=== PATIENT | male | born 1955 | race American Indian/Alaskan Native ===

== ENCOUNTER 2018-11-25 09:07 | Outpatient (CLI) | payer MEDICARE ==
--- NOTE | 2018-11-25 09:42 | XRay Report ---
LEFT SHOULDER, 3 VIEWS History: Pain in left shoulder. Findings: No comparison. There is been previous surgical pinning of the distal supraspinatus tendon, correlate with history. Mild osteoarthritic changes are identified at the glenohumeral joint. Moderate to severe degenerative changes are identified at the a.c. joint. No evidence for acute fracture or dislocation. The soft tissues are unremarkable. Impression: Osteoarthritis. Previous rotator cuff surgery.
== END 2018-11-25 09:08 | disposition home or self-care (01) ==
LOC: XRAY 09:07
PROVIDERS: ATTEND Orthopaedic Surgery
DX: M19.012 Primary osteoarthritis, left shoulder (principal); I10 Essential (primary) hypertension; E11.9 Type 2 diabetes mellitus without complications; Z87.891 Personal history of nicotine dependence

== ENCOUNTER 2018-12-30 21:45 | Observation (INO) | payer MEDICARE ==
--- NOTE | 2018-12-30 22:09 | Emergency Department Report ---
Blank Doc - Documentation Documentation: This is a 63-year-old male that presents with left sided cervical paraspinal a foster with radiation to head. Denies any trauma or injuries. This initial assessment/diagnostic orders/clinical plan/treatment(s) is/are subject to change based on patient's health status, clinical progression and re- assessment by fellow clinical providers in the ED. Further treatment and workup at subsequent clinical providers discretion. Patient/guardians urged not to elope from the ED as their condition may be serious if not clinically assessed and managed. Initial orders include: 1- Patient sent to [facility] for further evaluation and treatment
[2018-12-30] MEDS ORDERED: ATROVENT IH ONE (23:11)
[2018-12-30] MEDS ORDERED: NITROSTAT SL PRN (23:11)
[2018-12-30] MEDS ORDERED: TYLENOL PO ONE (23:11)
[2018-12-30] MEDS ORDERED: PROVENTIL IH ONE (23:11)
--- NOTE | 2018-12-30 23:14 | Emergency Department Report ---
ED General Adult HPI - General Chief complaint: Headache Stated complaint: SHOULDER NECK AND HEAD PAIN Time Seen by Provider: 12/30/18 22:08 Source: patient, RN notes reviewed, old records reviewed Mode of arrival: Ambulatory Limitations: No Limitations - History of Present Illness Initial comments: This is a 63-year-old gentleman. The patient is not known to this provider. His primary care doctor is Dr. Huynh. He has a past medical history of diabetes and hypertension. The patient presents to the emergency room with 2 complaints. History of complaints is nontraumatic acute on chronic left shoulder, left trapezius, and left paraspinal neck pain. Pain is aching and sharp, present for a few days, he has had this pain in the past, increases with palpation, range of motion, and decreases with rest. He denies DVT, pulmonary embolus risk factors. He reports a secondary complaint of chest pain. The chest pain is left-sided. It does not radiate anywhere. There is no vomiting, diaphoresis or shortness of breath. He last experienced chest pain, yesterday morning, for about 45 minutes. Questionable recent aspirin use, no recent cardiac risk stratification at the patient is aware of. -: Gradual Location: neck, chest Radiation: neck Severity scale (0 -10): 9 Quality: aching Consistency: intermittent Improves with: rest Worsens with: rest Associated Symptoms: chest pain - Related Data Home Medications Medication Instructions Recorded Confirmed Last Taken Hydrocodone/Ibuprofen [Vicoprofen 1 each PO Q4H PRN 09/15/15 09/15/15 11/13/15 07:00 7.5-200 mg TAB] Insulin Glargine [Lantus VIAL] 35 unit SUB-Q QHS 09/15/15 09/15/15 11/11/15 Lisinopril [Zestril TAB] 0 mg PO QDAY 09/15/15 09/15/15 11/13/15 07:00 Gabapentin 600 mg PO DAILY 11/13/15 11/13/15 11/12/15 Previous Rx's Medication Instructions Recorded Last Taken Type Butalb/Acetaminophen/Caffeine 1 cap PO Q6HR PRN #10 cap 09/16/15 11/12/15 Rx [Fioricet 50-300-40 mg CAP] Lisinopril/Hydrochlorothiazide 1 tab PO QDAY #30 tab 09/16/15 11/12/15 Rx [Zestoretic 20-12.5 mg] Allergies Allergy/AdvReac Type Severity Reaction Status Date / Time No Known Allergies Allergy Unverified 09/15/15 23:47 ED Review of Systems ROS: Stated complaint: SHOULDER NECK AND HEAD PAIN Other details as noted in HPI Constitutional: denies: fever, malaise Eyes: denies: vision change ENT: denies: epistaxis Respiratory: denies: cough Cardiovascular: chest pain Gastrointestinal: denies: abdominal pain, vomiting Genitourinary: denies: dysuria Musculoskeletal: back pain, arthralgia, myalgia Skin: denies: lesions Neurological: headache. denies: weakness, numbness, paresthesias, confusion ED Past Medical Hx - Past Medical History Hx Hypertension: Yes Hx Diabetes: Yes - Surgical History Past Surgical History?: Yes Additional Surgical History: left shoulder - Social History Smoking Status: Unknown if ever smoked Substance Use Type: None - Medications Home Medications: Home Medications Medication Instructions Recorded Confirmed Last Taken Type Hydrocodone/Ibuprofen [Vicoprofen 1 each PO Q4H PRN 09/15/15 09/15/15 11/13/15 07:00 History 7.5-200 mg TAB] Insulin Glargine [Lantus VIAL] 35 unit SUB-Q QHS 09/15/15 09/15/15 11/11/15 History Lisinopril [Zestril TAB] 0 mg PO QDAY 09/15/15 09/15/15 11/13/15 07:00 History Butalb/Acetaminophen/Caffeine 1 cap PO Q6HR PRN #10 cap 09/16/15 11/12/15 Rx [Fioricet 50-300-40 mg CAP] Lisinopril/Hydrochlorothiazide 1 tab PO QDAY #30 tab 09/16/15 11/12/15 Rx [Zestoretic 20-12.5 mg] Gabapentin 600 mg PO DAILY 11/13/15 11/13/15 11/12/15 History ED Physical Exam - General Limitations: No Limitations General appearance: alert, in no apparent distress - Head Head exam: Present: atraumatic, normocephalic - Eye Eye exam: Present: normal appearance, EOMI. Absent: nystagmus - ENT ENT exam: Present: normal exam, normal orophraynx, mucous membranes moist, normal external ear exam - Neck Neck exam: Present: normal inspection, tenderness, full ROM, other (there is reproducible trapezius and left-sided paracervical tenderness). Absent: meningismus - Respiratory Respiratory exam: Present: rhonchi (rhonchi noted in the left lower lobe, left hemithorax). Absent: respiratory distress - Cardiovascular Cardiovascular Exam: Present: regular rate, normal rhythm, normal heart sounds. Absent: bradycardia, tachycardia, irregular rhythm, systolic murmur, diastolic murmur, rubs, gallop - GI/Abdominal GI/Abdominal exam: Present: soft. Absent: distended, tenderness, guarding, rebound, rigid, pulsatile mass - Rectal Rectal exam: Present: deferred - Extremities Exam Extremities exam: Present: normal inspection, full ROM, other (2+ pulses noted in the bilateral upper, lower extremities. Compartments soft. No long bony tenderness. The pelvis is stable.). Absent: pedal edema, joint swelling, calf tenderness - Back Exam Back exam: Present: normal inspection, full ROM. Absent: tenderness, CVA tenderness (R), paraspinal tenderness, vertebral tenderness - Neurological Exam Neurological exam: Present: alert, oriented X3, CN II-XII intact, normal gait, other (Extraocular movements intact. Tongue midline. No facial droop. Facial sensation intact to light touch in the V1, V2, V3 distribution bilaterally. 5 and 5 strength in 4 extremities.. Sensation is intact to light touch in 4 extremities.). Absent: motor sensory deficit - Psychiatric Psychiatric exam: Present: normal affect, normal mood - Skin Skin exam: Present: warm, dry, intact, normal color. Absent: rash ED Course Vital Signs 12/30/18 12/31/18 22:08 00:52 Temperature 97.9 F Pulse Rate 93 H Respiratory 18 18 Rate Blood Pressure 127/80 O2 Sat by Pulse 100 98 Oximetry - Reevaluation(s) Reevaluation #1: 12/31/18 01:19 Differential diagnosis, including but not limited to: Paraspinal muscular neck pain, acute coronary syndrome, pulmonary embolus, pneumonia, GERD, gastritis, hiatal hernia Assessment and plan: 63-year-old gentleman with 2 complaints Complaint #1: Reproducible paracervical muscular neck pain. The patient has appropriate strength and sensation, with no sensory or motor deficits, he is apparently seen Dr. Mcdonald, our orthopedic surgeon for this in the past. This does not appear to represent an emergent medical condition, and he can be treated with pain medication. Complaint #2: Chest pain Patient has an abnormal EKG with changes from prior, nonspecific ST abnormalities on his potline monitor, and multiple cardiovascular risk factors with no recent cardiac risk stratification. Troponin negative 1, low risk by well's criteria, however d-dimer elevated, therefore nuclear medicine study of the lungs is pending. Given age, vascular risk factors, nonspecific EKG findings, I will recommend ad mission to the hospital for cardiac risk stratification, assuming nuclear medicine study is low probability. We will discuss this with the patient. Reevaluation #2: 12/31/18 01:29 Repeat EKG shows normalization of QRS complexes. Uncertain if initial EKG abnormalities were secondary to lead misplacement. There appeared EKG appears to be unchanged from prior EKG from January 2015. Still having nonspecific ST abnormalities. Patient resting comfortably, requesting additional pain medication. He is amenable to hospitalization for cardiac risk stratification. Dr Underwood accepts to the medical service 12/31/18 01:33 I will defer to the inpatient team to follow up on a nuclear medicine study. ED Medical Decision Making - Lab Data Result diagrams: 12/30/18 23:50 12/30/18 23:50 Vital Signs 12/30/18 12/31/18 22:08 00:52 Temperature 97.9 F Pulse Rate 93 H Respiratory 18 18 Rate Blood Pressure 127/80 O2 Sat by Pulse 100 98 Oximetry Lab Results 12/30/18 12/30/18 12/30/18 Range/Units 23:50 23:50 23:50 WBC 6.7 (4.5-11.0) K/mm3 RBC 6.29 H (3.65-5.03) M/mm3 Hgb 17.4 H (11.8-15.2) gm/dl Hct 50.0 H (35.5-45.6) % MCV 80 L (84-94) fl MCH 28 (28-32) pg MCHC 35 H (32-34) % RDW 13.6 (13.2-15.2) % Plt Count 273 (140-440) K/mm3 PT 12.1 L (12.2-14.9) Sec. INR 0.85 L (0.87-1.13) D-Dimer 279.48 H (0-234) ng/mlDDU Sodium 142 (137-145) mmol/L Potassium 4.1 (3.6-5.0) mmol/L Chloride 100.9 (98-107) mmol/L Carbon Dioxide 28 (22-30) mmol/L Anion Gap 17 mmol/L BUN 14 (9-20) mg/dL Creatinine 1.0 (0.8-1.5) mg/dL Estimated GFR > 60 ml/min BUN/Creatinine Ratio 14 % Glucose 293 H (75-100) mg/dL Calcium 9.3 (8.4-10.2) mg/dL Magnesium 2.10 (1.7-2.3) mg/dL Total Bilirubin 1.30 H (0.1-1.2) mg/dL AST 14 (5-40) units/L ALT 11 (7-56) units/L Alkaline Phosphatase 78 (35-129) units/L Troponin T < 0.010 (0.00-0.029) ng/mL Total Protein 6.7 (6.3-8.2) g/dL Albumin 4.3 (3.9-5) g/dL Albumin/Globulin Ratio 1.8 % - EKG Data -: EKG Interpreted by Pa EKG shows normal: sinus rhythm Rate: normal - EKG Data 12/31/18 01:32 EKG #1 shows sinus, 91 bpm, left axis deviation, QTC prolonged, left anterior fascicular block, left ventricular hypertrophy, nonspecific ST abnormality, not consistent with ST elevation myocardial infarction. EKG #2 shows sinus tachycardia, 103 bpm, normal axis, QTC 458 ms, left ventricular hypertrophy, nonspecific ST elevation. Abnormal EKG. Not consistent with ST elevation myocardial infarction. - Radiology Data Radiology results: report reviewed, image reviewed Critical care attestation.: If time is entered above; I have spent that time in minutes in the direct care of this critically ill patient, excluding procedure time. ED Disposition Clinical Impression: Neck pain, Chest pain, Abnormal EKG Disposition: OP ADMIT IP TO THIS HOSP Is pt being admited?: Yes Does the pt Need Aspirin: Yes Condition: Good Instructions: Chest Pain (ED) Referrals: PRIMARY CARE, [Primary Care Provider] - 3-5 Days
[2018-12-31 00:19] LABS: Hemoglobin 17.4 gm/dl (11.8-15.2); Mean Corpuscular HGB Conc 35 % (32-34); Mean Corpuscular Volume 80 fl (84-94); Platelet Count 273 K/mm3 (140-440); Red Blood Count 6.29 M/mm3 (3.65-5.03); Red Cell Distribution Width 13.6 % (13.2-15.2)
[2018-12-31 00:28] LABS: INR 0.85 (0.87-1.13)
[2018-12-31 00:38] LABS: Alanine Aminotransferase 11 units/L (7-56); Albumin 4.3 g/dL (3.9-5); BUN/Creatinine Ratio 14; Blood Urea Nitrogen 14 mg/dL (9-20); Calcium 9.3 mg/dL (8.4-10.2); Hemolysis Index 9
--- NOTE | 2018-12-31 01:07 | XRay Report ---
PROCEDURE: XR CHEST ROUTINE 2V TECHNIQUE: PA and lateral chest radiographs were obtained. HISTORY: cp COMPARISONS: August 03, 2012. FINDINGS: Heart: Normal. Mediastinum/Vessels: Normal. Lungs/Pleural space: Lungs are expanded. There are no infiltrates, effusions or pneumothoraces.. Bony thorax: No acute osseous abnormality. IMPRESSION: Normal examination. This document is electronically signed by Saul Lomeli MD., December 31 2018 01:05:43 AM ET
[2018-12-31] MEDS ORDERED: TORADOL IV ONE (01:19)
[2018-12-31] MEDS ORDERED: SUBLIMAZE IV ONE (01:29)
[2018-12-31] MEDS ORDERED: BABY ASPIRIN PO ONE (01:33)
[2018-12-31] MEDS ORDERED: MORPHINE IV PRN (02:03)
[2018-12-31] MEDS ORDERED: ZOFRAN IV PRN (02:04)
[2018-12-31] MEDS ORDERED: TYLENOL PO PRN (02:05)
[2018-12-31] MEDS ORDERED: D50W (25GM) Syringe IV PRN (02:08)
[2018-12-31] MEDS ORDERED: HABITROL TD ONE (02:12)
[2018-12-31] MEDS ORDERED: HEPARIN SUB-Q SCH (02:15)
[2018-12-31] MEDS: HumuLIN R SUB-Q SCH ×3 (02:59→10:00)
[2018-12-31] MEDS ORDERED: HEPARIN ONE (03:30)
--- NOTE | 2018-12-31 03:32 | History and Physical Report ---
CHIEF COMPLAINT: Chest pain. Other complaint includes neck and shoulder pain. HISTORY OF PRESENT ILLNESS: The patient is a 63-year-old male, who said he has been having pressure-like chest pain involving the precordial area and going on for some days. Pain is pressure in nature, does not radiate and is not associated by shortness of breath, nausea or vomiting. There is also no history of diaphoresis. Pain is intermittent in nature and there is also history of chronic left shoulder and left side of the neck pain, which flared up in the last 2 days. PAST MEDICAL HISTORY: Pertinent for hypertension, diabetes mellitus. PAST SURGICAL HISTORY: Pertinent for left shoulder surgery. FAMILY HISTORY: Noncontributory. SOCIAL HISTORY: The patient does not smoke, does not drink alcohol and does not use illicit drugs. MEDICATIONS: The patient is on Vicoprofen 7.5/200 mg 1 by mouth every 4 hours as needed for pain, Lantus insulin 35 units subcutaneous every night, lisinopril, dose and frequency unknown, Fioricet 50/300/40 mg 1 by mouth every 6 hours as needed for pain, Zestoretic 20/12.5 mg 1 by mouth daily, gabapentin 600 mg by mouth daily. ALLERGIES: There are no known drug allergies. REVIEW OF SYSTEMS: CONSTITUTIONAL: There is no fever, no chills, no diaphoresis. HEENT: There is no headache or sore throat. CARDIOVASCULAR SYSTEM: Chest pain is present. No orthopnea. RESPIRATORY SYSTEM: There is no shortness of breath or cough. GASTROINTESTINAL SYSTEM: There is no nausea, no vomiting, no abdominal pain, diarrhea or constipation. NEUROLOGICAL: There is no numbness, no dizziness, no altered mental status. MUSCULOSKELETAL SYSTEM: Pain in the left shoulder area and left side of the neck noted. No joint swelling. DERMATOLOGICAL SYSTEM: There is no skin rash or itching. GENITOURINARY SYSTEM: There is no dysuria, hematuria, or flank pain. Rest of system review is normal. PHYSICAL EXAMINATION: GENERAL: At the time of exam, the patient was found to be alert, oriented x 3 and not in acute distress. VITAL SIGNS: Shows temperature of 97.9 degrees Fahrenheit, pulse of 93, respirations 18, blood pressure 127/80, O2 sat of 100% on room air. HEENT: Showed pupils to be equal, round, reactive to light and accommodating. Extraocular muscles are intact. NECK: Supple with no JVD or carotid bruits. CARDIOVASCULAR: Showed normal first and second heart sounds with no gallops or murmur. RESPIRATORY SYSTEM: Show good air entry on both sides of the lungs with no abnormal breath sounds. GASTROINTESTINAL SYSTEM: Show abdomen to be full, soft, nontender with no organomegaly or rigidity. NEUROLOGICAL: Shows no focal deficit. MUSCULOSKELETAL SYSTEM: Show no joint swelling or tenderness. DERMATOLOGICAL SYSTEM: Show no skin rash. GENITOURINARY SYSTEM: Showing no costovertebral angle tenderness. PERTINENT LABORATORY DATA AND IMAGING STUDIES: The patient has chest x-ray done that came back unremarkable and the patient's lab results shows CBC with normal white count, elevated hemoglobin of 17.4 and elevated hematocrit of 50 with normal platelet count and coagulation studies show elevated D-dimer of 279.4. The patient's chemistry show high blood glucose level of 293 with slightly elevated bilirubin level of 1.3. The patient's cardiac enzymes show normal troponin level. The patient also has a CT angiogram of the chest or V/Q scan pending. DIAGNOSES: 1. Chest pain. 2. Neck pain. PLAN OF CARE: 1. The patient will be admitted to the telemetry. 2. The patient will have cardiac enzyme involving troponin, total CK and CK-MB checked q. 6 hours x 2 more levels. 3. The patient will be n.p.o. for Lexiscan stress test in the morning to rule out coronary artery disease. 4. The patient will be n.p.o. until Lexiscan stress test is done this morning. 5. The patient will be on aspirin 325 mg by mouth daily and will be on IV morphine 2 mg every 3 hours as needed for pain. 6. The patient will be on IV Zofran 4 mg every 8 hours for nausea and vomiting. 7. The patient will be on nitro paste half inch to anterior chest wall q.i.d. as well as Nitrostat 0.4 mg sublingual every 5 minutes as needed for breakthrough chest pain. 8. The patient will be on Tylenol 650 mg by mouth every 4 hours as needed for fever and headache and will be on heparin 5000 units subcutaneous q. 12 hours for DVT prophylaxis. 9. The patient will be on nicotine patch 14 mg transdermally daily and will be on oxygen by nasal cannula at 2 liter per minute. 10. The patient will be on Accu-Chek every 4 hours followed by low-dose sliding scale using regular insulin coverage. JOB# [id number] OCN/NTS
[2018-12-31] MEDS ORDERED: ASPIRIN ONE (04:09)
[2018-12-31] MEDS ORDERED: APRESOLINE IV ONE (05:07)
[2018-12-31] MEDS: NITRO-BID 2% TP SCH ×2 (05:24→12:00)
[2018-12-31 08:08] LABS: Creatine Kinase MB 1.6 ng/mL (0.0-4.0)
[2018-12-31] MEDS ORDERED: LEXISCAN IV ONE ×2 (09:00→09:03)
[2018-12-31] MEDS ORDERED: XANAX PO STA (09:24)
--- NOTE | 2018-12-31 11:16 | Discharge Summary ---
Providers - Providers Date of Admission: 12/31/18 01:33 Date of discharge: 12/31/18 Attending physician: ANCELMO PRESSLEY Primary care physician: [employer] Hospitalization Reason for admission: cp Condition: Good Hospital course: This is a 63-year-old male with past medical history of hypertension and diabetes mellitus type 2 who presented through the emergency room department with chief complaint of chest pain. Patient reported the pain on the left anterior chest nonradiating. Patient also reported left shoulder and neck pain. Patient denied any trauma, shortness of breath, diaphoresis nausea or vomiting. Patient was admitted with diagnosis of chest pain. Cardiac isoenzymes were found to be negative and EKG within normal limits. Patient underwent stress thallium and if found to be negative likely will discharge home. The patient's chest pain was noted to be reproducible with palpation. Etiology of chest pain is likely musculoskeletal/costochondritis. Dedicated discharge time 32 minutes. Disposition: TO HOME OR SELFCARE Time spent for discharge: 31 - Discharge Diagnoses (1) Chest pain Status: Acute (2) Neck pain Status: Acute Core Measure Documentation - Palliative Care Palliative Care/ Comfort Measures: Not Applicable - Core Measures Any of the following diagnoses?: none Exam - Constitutional Vitals: Temp Pulse Resp BP Pulse Ox 98.2 F 84 16 195/94 94 12/31/18 05:00 12/31/18 05:00 12/31/18 05:00 12/31/18 04:35 12/31/18 05:00 General appearance: Present: no acute distress, well-nourished - EENT Eyes: Present: PERRL ENT: hearing intact, clear oral mucosa - Neck Neck: Present: supple, normal ROM - Respiratory Respiratory effort: normal Respiratory: bilateral: CTA - Cardiovascular Heart Sounds: Present: S1 & S2. Absent: rub, click - Extremities Extremities: pulses symmetrical, No edema Peripheral Pulses: within normal limits - Abdominal General gastrointestinal: Present: soft, non-tender, non-distended, normal bowel sounds Male genitourinary: Present: normal - Integumentary Integumentary: Present: clear, warm, dry - Musculoskeletal Musculoskeletal: gait normal, strength equal bilaterally - Psychiatric Psychiatric: appropriate mood/affect, intact judgment & insight - Neurologic Neurologic: CNII-XII intact, moves all extremities Plan Activity: no restrictions Weight Bearing Status: Full Weight Bearing Diet: diabetic Follow up with: PRIMARY CARE, [Primary Care Provider] - 3-5 Days Prescriptions: Aspirin [Aspirin TAB] 325 mg PO QDAY #30 tablet Gabapentin 600 mg PO DAILY #30 Insulin Glargine [Lantus VIAL] 35 unit SUB-Q QHS 30 Days units Gabapentin [Neurontin] 600 mg PO QDAY #30 capsule Lisinopril/Hydrochlorothiazide [Zestoretic 20-12.5 mg] 1 tab PO QDAY #30 tab Lisinopril [Zestril TAB] 5 mg PO QDAY #30 tablet
[2018-12-31 12:04] VITALS: BP 151/87
[2018-12-31 13:40] LABS: Creatine Kinase MB 1.8 ng/mL (0.0-4.0)
--- NOTE | 2018-12-31 21:00 | Treadmill Report ---
MYOCARDIAL PERFUSION IMAGING STUDY The patient is in 462. Resting images with a radioisotope tetrofosmin revealed slightly diminished uptake in the inferior wall. On post-Lexiscan, again similar uptake is noted. This is probably due to artifact as post-Lexiscan scan reveals better uptake than the resting scan. On gated scan, ejection fraction is noted to be 43%. No segmental motion abnormality noted. IMPRESSION: This test is negative for ischemia. JOB# [id number] ARNEL/SKYLA
[2018-12-31] MEDS ORDERED: LANTUS SUB-Q SCH (22:00)
[2019-01-01] MEDS ORDERED: NON-FORMULARY (Gabapentin 600 MG) PO SCH (10:00)
[2019-01-01] MEDS ORDERED: NEURONTIN PO SCH (10:00)
[2019-01-01] MEDS ORDERED: ZESTRIL PO SCH ×2 (10:00)
[2019-01-01] MEDS ORDERED: ASPIRIN PO SCH (10:00)
[2019-01-01] MEDS ORDERED: HCTZ PO SCH (10:00)
[2019-01-01] MEDS ORDERED: NON-FORMULARY (Lisinopril/Hydrochlorothiazide [Zestoretic 20-12.5 Mg] 1 TAB) PO SCH (10:00)
== END 2018-12-31 13:29 | disposition home or self-care (01) ==
LOC: ED 21:45 → 4A 12-31 01:33
PROVIDERS: ADMIT Internal Medicine; ATTEND Hospitalist
DX: R07.89 Other chest pain (principal); M54.2 Cervicalgia; I10 Essential (primary) hypertension; E11.9 Type 2 diabetes mellitus without complications; Z79.899 Other long term (current) drug therapy
CPT/HCPCS: 36415; 71046; 78452; 80053; 82550; 82553; 82962; 83735; 84484; 85027; 85379; 85610; 93005; 93010; 93017; 96372; 96374; 96375; 99284; A9502; G0378; J0360; J1644; J1885; J2270; J2785; J3010

== ENCOUNTER 2019-02-04 05:56 | Outpatient (CLI) | payer MEDICARE ==
[2019-02-04 07:03] LABS: Blood Urea Nitrogen 16 mg/dL (9-20)
--- NOTE | 2019-02-04 10:46 | Cat Scan Report ---
CT ABDOMEN AND PELVIS WITHOUT CONTRAST: 02/04/19 05:56:00 CLINICAL:Abdominal pain. TECHNIQUE: Volumetric acquisition and 1.25 millimeter scan reconstructions from the lung bases through the pelvis. The study was performed without oral contrast. FINDINGS: Abdomen:Clear lung bases. Normal liver size, contour and density. No liver mass. A few tiny calculi layer dependently in the gallbladder. The gall bladder is nondistended with normal wall. No pericholecystic fluid. Normal distal esophagus, stomach, and duodenum. Granulomatous calcifications in an otherwise normal spleen. The adrenal glands are normal. Mild atherosclerotic calcification of the distal aorta. It measures 2.2 cm maximum diameter. The right kidney measures 10.8 cm in length and the left kidney measures 10.0 cm in length. The renal collecting systems and ureters are nondilated. Two 3 millimeter nonobstructive left lower pole renal calculi. A probable calcification in the midportion of the right kidney but no right urinary calculus. No renal mass or cyst. No ascites and no pneumoperitoneum. Normal small bowel. A few diverticula the right colon and more numerous diverticula of the distal transverse and descending colon. No signs of diverticulitis. The appendix is normal. No mass or lymphadenopathy. Pelvis: Normal urinary bladder, prostate and rectum. Mild sigmoid diverticulosis with no diverticulitis. Calcification of seminal vesicles. No inguinal hernia. Bone windows demonstrate no suspicious bone lesion. Degenerative change in the lumbar spine and hips. IMPRESSION: 1. Cholelithiasis but no signs of acute cholecystitis. 2. No evidence of choledocholithiasis or pancreatitis. 3. Nonobstructive subcentimeter left lower pole renal calculi. 4. Diverticulosis but no diverticulitis.
== END 2019-02-04 05:57 | disposition home or self-care (01) ==
LOC: CT 05:56
PROVIDERS: ATTEND Internal Medicine Gastroenterology
DX: K80.20 Calculus of gallbladder without cholecystitis without obstruction (principal); K57.30 Diverticulosis of large intestine without perforation or abscess without bleeding; I10 Essential (primary) hypertension; E11.9 Type 2 diabetes mellitus without complications; Z87.891 Personal history of nicotine dependence
CPT/HCPCS: 36415; 74176; 82565; 84520

== ENCOUNTER 2019-04-18 10:54 | Emergency (ER) | payer MEDICARE ==
[2019-04-18 11:07] VITALS: BP 159/99
--- NOTE | 2019-04-18 11:08 | Event Note ---
ED Screening Note ED Screening Note: c/o chest pain c/o cough hx HTN, DM smoker This initial assessment/diagnostic orders/clinical plan/treatment(s) is/are subject to change based on patients health status, clinical progression and re- assessment by fellow clinical providers in the ED. Further treatment and workup at subsequent clinical providers discretion. Patient/guardian urged not to elope from the ED as their condition may be serious if not clinically assessed and managed. Initial orders include: Cp protocol
[2019-04-18] MEDS ORDERED: ATROVENT IH ONE (11:31)
[2019-04-18] MEDS ORDERED: PROVENTIL IH ONE (11:31)
[2019-04-18 12:18] LABS: Basophils # (Auto) 0.1 K/mm3 (0.0-0.1); Basophils % (Auto) 0.6 % (0.0-1.8); Eosinophils # (Auto) 0.2 K/mm3 (0.0-0.4); Eosinophils % (Auto) 1.8 % (0.0-4.3); Lymphocytes # (Auto) 2.6 K/mm3 (1.2-5.4); Lymphocytes % (Auto) 28.7 % (13.4-35.0); Mean Corpuscular HGB Conc 36 % (32-34); Mean Corpuscular Volume 80 fl (84-94); Monocytes # (Auto) 0.6 K/mm3 (0.0-0.8); Monocytes % (Auto) 6.5 % (0.0-7.3); Platelet Count 299 K/mm3 (140-440); Red Blood Count 6.01 M/mm3 (3.65-5.03)
[2019-04-18 12:23] LABS: BUN/Creatinine Ratio 12; Blood Urea Nitrogen 14 mg/dL (9-20); Calcium 8.8 mg/dL (8.4-10.2); Hemolysis Index 6
[2019-04-18 12:26] LABS: Hematocrit 47.9 % (35.5-45.6); Hemoglobin 17.1 gm/dl (11.8-15.2)
--- NOTE | 2019-04-18 12:56 | XRay Report ---
PROCEDURE: XR CHEST ROUTINE 2V TECHNIQUE: PA and lateral chest radiographs were obtained. HISTORY: Chest Pain COMPARISONS: None. FINDINGS: Frontal and lateral views of the chest were acquired and compared to the prior examination of December 30, 2018. The heart is normal in size. The lungs are hyperinflated similar to the prior exam. There is no pneum othorax. There is no consolidative pulmonary infiltrate. IMPRESSION: Stable hyperinflation No consolidative infiltrate This document is electronically signed by Pranav Lara MD., April 18 2019 12:54:04 PM ET
--- NOTE | 2019-04-18 13:19 | Emergency Department Report ---
- General Chief Complaint: Upper Respiratory Infection Stated Complaint: CHEST PAIN Time Seen by Provider: 04/18/19 11:06 Source: patient Mode of arrival: Ambulatory Limitations: No Limitations - History of Present Illness Initial Comments: Patient is a 63-year-old [place] male presenting with a cough for the past 5 days. Cough is productive of thick yellow sputum. Patient has some chest tightness as well has been present last several days. Patient has a history of hypertension diabetes. Patient states he has had chills and possible fever does not take an objective temperature. She denies any nausea vomiting diarrhea sore throat or neck stiffness. - Related Data Home Medications Medication Instructions Recorded Confirmed Last Taken Hydrocodone/Ibuprofen [Vicoprofen 1 each PO Q4H PRN 09/15/15 09/15/15 11/13/15 07:00 7.5-200 mg TAB] Previous Rx's Medication Instructions Recorded Last Taken Type Butalb/Acetaminophen/Caffeine 1 cap PO Q6HR PRN #10 cap 09/16/15 11/12/15 Rx [Fioricet 50-300-40 mg CAP] Aspirin 325 mg PO QDAY #30 tablet 12/31/18 Unknown Rx Gabapentin 600 mg PO DAILY #30 12/31/18 Unknown Rx Gabapentin [Neurontin] 600 mg PO QDAY #30 capsule 12/31/18 Unknown Rx Insulin Glargine [Lantus VIAL] 35 unit SUB-Q QHS 30 Days units 12/31/18 Unknown Rx Lisinopril [Zestril TAB] 5 mg PO QDAY #30 tablet 12/31/18 Unknown Rx Lisinopril/Hydrochlorothiazide 1 tab PO QDAY #30 tab 12/31/18 Unknown Rx [Zestoretic 20-12.5 mg] oxyCODONE /ACETAMINOPHEN [Percocet 1 tab PO Q4HR #12 tab 12/31/18 Unknown Rx 5/325] ALBUTEROL Inhaler (OR & NICU) 2 puff IH QID PRN #1 inhalation 04/18/19 Unknown Rx [ProAir HFA Inhaler] Amoxicillin/Potassium Clav 1 each PO BID #14 tablet 04/18/19 Unknown Rx [Augmentin 875-125 Tablet] Benzonatate [Tessalon Perles] 100 mg PO Q8HR #10 capsule 04/18/19 Unknown Rx traMADol [Ultram] 50 mg PO Q6HR PRN #12 tablet 04/18/19 Unknown Rx Allergies Allergy/AdvReac Type Severity Reaction Status Date / Time No Known Allergies Allergy Unverified 09/15/15 23:47 ED Review of Systems ROS: Stated complaint: CHEST PAIN Other details as noted in HPI Comment: All other systems reviewed and negative ED Past Medical Hx - Past Medical History Hx Hypertension: Yes Hx Diabetes: Yes - Surgical History Additional Surgical History: left shoulder - Social History Smoking Status: Current Every Day Smoker Substance Use Type: Alcohol - Medications Home Medications: Home Medications Medication Instructions Recorded Confirmed Last Taken Type Hydrocodone/Ibuprofen [Vicoprofen 1 each PO Q4H PRN 09/15/15 09/15/15 11/13/15 07:00 History 7.5-200 mg TAB] Butalb/Acetaminophen/Caffeine 1 cap PO Q6HR PRN #10 cap 09/16/15 11/12/15 Rx [Fioricet 50-300-40 mg CAP] Aspirin 325 mg PO QDAY #30 tablet 12/31/18 Unknown Rx Gabapentin 600 mg PO DAILY #30 12/31/18 Unknown Rx Gabapentin [Neurontin] 600 mg PO QDAY #30 capsule 12/31/18 Unknown Rx Insulin Glargine [Lantus VIAL] 35 unit SUB-Q QHS 30 Days units 12/31/18 Unknown Rx Lisinopril [Zestril TAB] 5 mg PO QDAY #30 tablet 12/31/18 Unknown Rx Lisinopril/Hydrochlorothiazide 1 tab PO QDAY #30 tab 12/31/18 Unknown Rx [Zestoretic 20-12.5 mg] oxyCODONE /ACETAMINOPHEN [Percocet 1 tab PO Q4HR #12 tab 12/31/18 Unknown Rx 5/325] ALBUTEROL Inhaler (OR & NICU) 2 puff IH QID PRN #1 inhalation 04/18/19 Unknown Rx [ProAir HFA Inhaler] Amoxicillin/Potassium Clav 1 each PO BID #14 tablet 04/18/19 Unknown Rx [Augmentin 875-125 Tablet] Benzonatate [Tessalon Perles] 100 mg PO Q8HR #10 capsule 04/18/19 Unknown Rx traMADol [Ultram] 50 mg PO Q6HR PRN #12 tablet 04/18/19 Unknown Rx ED Physical Exam - General Limitations: No Limitations General appearance: alert, in no apparent distress - Head Head exam: Present: atraumatic, normocephalic - Eye Eye exam: Present: normal appearance. Absent: PERRL, EOMI - ENT ENT exam: Present: mucous membranes moist - Neck Neck exam: Present: normal inspection - Respiratory Respiratory exam: Present: respiratory distress, wheezes. Absent: normal lung sounds bilaterally, rales, rhonchi - Cardiovascular Cardiovascular Exam: Present: regular rate, normal rhythm. Absent: systolic murmur, diastolic murmur, rubs, gallop - GI/Abdominal GI/Abdominal exam: Present: soft, normal bowel sounds. Absent: distended, tenderness, guarding, rebound - Rectal Rectal exam: Present: deferred - Extremities Exam Extremities exam: Present: normal inspection - Back Exam Back exam: Present: normal inspection - Neurological Exam Neurological exam: Present: alert, oriented X3 - Psychiatric Psychiatric exam: Present: normal affect, normal mood - Skin Skin exam: Present: warm, dry, intact, normal color. Absent: rash ED Course Vital Signs 04/18/19 04/18/19 04/18/19 11:02 11:53 12:23 Temperature 97.8 F Pulse Rate 97 H Pulse Rate [ 88 92 H Anterior Bilateral Throughout] Respiratory 19 Rate Respiratory 20 20 Rate [Anterior Bilateral Throughout] Blood Pressure 159/99 O2 Sat by Pulse 95 Oximetry ED Medical Decision Making - Lab Data Result diagrams: 04/18/19 11:56 04/18/19 11:56 - EKG Data -: EKG Interpreted by [facility] EKG shows normal: sinus rhythm, axis, intervals, QRS complexes, ST-T waves Rate: normal - EKG Data Interpretation: [facility] - Radiology Data [facility] [address] [place] [address] XRay Report Signed Patient: RICCI COFFEY MR#: [id number] : 1955 Acct:[id number] Age/Sex: 63 / M ADM Date: 04/18/19 Loc: ED Attending Dr: Ordering Physician: NIURKA REGALADO Date of Service: 04/18/19 Procedure(s): XR chest routine 2V Accession Number(s): [id number] cc: NIURKA REGALADO Fluoro Time In Minutes: PROCEDURE: XR CHEST ROUTINE 2V TECHNIQUE: PA and lateral chest radiographs were obtained. HISTORY: Chest Pain COMPARISONS: None. FINDINGS: Frontal and lateral views of the chest were acquired and compared to the prior examination of December 30, 2018. The heart is normal in size. The lungs are hyperinflated similar to the prior exam. There is no pneumothorax. There is no consolidative pulmonary infiltrate. IMPRESSION: Stable hyperinflation No consolidative infiltrate This document is electronically signed by Pranav Lara MD., April 18 2019 12:54:04 PM ET Transcribed By: SREEKANTH Dictated By: PRANAV LARA MD Electronically Authenticated By: PRANAV LARA MD Signed Date/Time: 04/18/19 1256 DD/ 1144 - Medical Decision Making Patient is a 63-year-old [place] male presenting with a productive cough and wheezing. Patient was given neb treatment over a course of a half hour and feeling much improved. Wheezing has resolved at the time of discharge. Patient chest x-ray shows no evidence of pneumonia patient does have acute bronchitis. Because the patient's age and the fact that he smokes patient will be started on antibiotics. Patient also given an albuterol inhaler as well as medications for pain relief Critical care attestation.: If time is entered above; I have spent that time in minutes in the direct care of this critically ill patient, excluding procedure time. ED Disposition Clinical Impression: Acute respiratory distress, Bronchospasm Acute bronchitis Qualifiers: Bronchitis organism: other organism Qualified Code(s): J20.8 - Acute bronchitis due to other specified organisms Chest pain Qualifiers: Chest pain type: intercostal pain Qualified Code(s): R07.82 - Intercostal pain Disposition: - TO HOME OR SELFCARE Is pt being admited?: No Does the pt Need Aspirin: No Condition: Stable Instructions: Acute Bronchitis (ED), Chest Pain (ED) Time of Disposition: 13:21
== END 2019-04-18 13:30 | disposition home or self-care (01) ==
LOC: ED 10:54
DX: J20.9 Acute bronchitis, unspecified (principal); R06.03 Acute respiratory distress; I10 Essential (primary) hypertension; E11.9 Type 2 diabetes mellitus without complications; F17.200 Nicotine dependence, unspecified, uncomplicated; Z79.82 Long term (current) use of aspirin; Z79.4 Long term (current) use of insulin; Z79.899 Other long term (current) drug therapy
CPT/HCPCS: 36415; 71046; 80048; 85025; 93005; 93010; 94640; 99284

== ENCOUNTER 2022-07-14 19:54 | Inpatient (IN) | payer MEDICARE, OTHER ==
[2022-07-14 21:42] LABS: Basophils # (Auto) 0.1 K/mm3 (0.0-0.1); Eosinophils % (Auto) 0.4 % (0.0-4.3); Monocytes # (Auto) 0.9 K/mm3 (0.0-0.8); Monocytes % (Auto) 8.2 % (0.0-7.3)
[2022-07-14 21:47] LABS: Basophils % (Auto) 0.7 % (0.0-1.8); Hematocrit 59.8 % (35.5-45.6); Hemoglobin 19.8 gm/dl (11.8-15.2); Lymphocytes # (Auto) 1.8 K/mm3 (1.2-5.4); Lymphocytes % (Auto) 15.1 % (13.4-35.0); Mean Corpuscular HGB Conc 33 % (32-34); Mean Corpuscular Volume 75 fl (84-94); Platelet Count 257 K/mm3 (140-440); Red Blood Count 7.92 M/mm3 (3.65-5.03); Red Cell Distribution Width 15.6 % (13.2-15.2)
[2022-07-14 21:52] LABS: INR 1.05 (0.87-1.13)
--- NOTE | 2022-07-14 21:54 | XRay Report ---
CHEST 2 VIEWS INDICATION / CLINICAL INFORMATION: CHEST PAIN / COUGH. COMPARISON: December 2019 FINDINGS: SUPPORT DEVICES: None. HEART / MEDIASTINUM: No significant abnormality. LUNGS / PLEURA: Patchy airspace opacities right upper lobe. No pneumothorax. Peribronchial thickening . ADDITIONAL FINDINGS: No significant additional findings. IMPRESSION: 1. Patchy right upper lobe consolidation most concerning for pneumonia in the appropriate clinical se tting, other mimicking etiologies secondarily considered, superimposed upon bronchitic change. Contin ued clinical/imaging surveillance to clearance recommended. Signer Name: Kimi Day MD Signed: 07/14/2022 9:50 PM Workstation Name: [id number]
--- NOTE | 2022-07-14 21:59 | Emergency Department Report ---
ED General Adult HPI - General Chief complaint: Chest Pain Stated complaint: CHEST PAIN/DIFFICUTLY BREATHING PUI?: No Time Seen by Provider: 07/14/22 21:31 Source: patient, family Mode of arrival: Wheelchair Limitations: No Limitations - History of Present Illness Initial comments: This is a 65-year-old male with medical history of diabetes hypertension came in today with concerns of chest pain that started yesterday. According patient is a aching chest discomfort with also short of breath. Patient also endorsed abdominal discomfort that is more in the mid epigastric rating to her back and also suprapubic lesion. She denies any chest pain makes it better or make it worse. Patient denies chest pain radiate anywhere else. Patient denies any other associate symptoms. Patient denies fever chill night sweat dizziness blurred vision lightheadedness headache tinnitus ear pain runny nose sore throat loss of taste or smell palpitation cough diarrhea constipation dysuria myalgia arthralgia new rash and heat or cold intolerance. - Related Data Home Medications Medication Instructions Recorded Confirmed Last Taken Hydrocodone/Ibuprofen [Vicoprofen 1 each PO Q4H PRN 09/15/15 09/15/15 11/13/15 07:00 7.5-200 mg TAB] Previous Rx's Medication Instructions Recorded Last Taken Type Butalb/Acetaminophen/Caffeine 1 cap PO Q6HR PRN #10 cap 09/16/15 11/12/15 Rx [Fioricet 50-300-40 mg CAP] Aspirin 325 mg PO QDAY #30 tablet 12/31/18 Unknown Rx Gabapentin 600 mg PO DAILY #30 12/31/18 Unknown Rx Gabapentin 600 mg PO QDAY #30 capsule 12/31/18 Unknown Rx Insulin Glargine [Lantus VIAL] 35 unit SUB-Q QHS 30 Days units 12/31/18 Unknown Rx Lisinopril/Hydrochlorothiazide 1 tab PO QDAY #30 tab 12/31/18 Unknown Rx [Zestoretic 20-12.5 mg] lisinopriL [Zestril TAB] 5 mg PO QDAY #30 tablet 12/31/18 Unknown Rx oxyCODONE /ACETAMINOPHEN [Percocet 1 tab PO Q4HR #12 tab 12/31/18 Unknown Rx 5/325] Albuterol Mdi (or & Nicu Only) 2 puff IH QID PRN #1 inhalation 04/18/19 Unknown Rx [ProAir HFA Inhaler] Amoxicillin/Potassium Clav 1 each PO BID #14 tablet 04/18/19 Unknown Rx [Augmentin 875-125 Tablet] Benzonatate [Tessalon Perles] 100 mg PO Q8HR #10 capsule 04/18/19 Unknown Rx traMADoL [Ultram] 50 mg PO Q6HR PRN #12 tablet 04/18/19 Unknown Rx Cyclobenzaprine [Flexeril] 10 mg PO QHS PRN #10 tablet 01/13/20 Unknown Rx Naproxen 500 mg PO Q12H PRN #20 tablet 01/13/20 Unknown Rx Allergies Allergy/AdvReac Type Severity Reaction Status Date / Time No Known Allergies Allergy Unverified 09/15/15 23:47 ED Review of Systems ROS: Stated complaint: CHEST PAIN/DIFFICUTLY BREATHING Other details as noted in HPI Comment: All other systems reviewed and negative Constitutional: no symptoms reported Eyes: as per HPI ENT: as per HPI Respiratory: no symptoms reported, see HPI Cardiovascular: as per HPI Endocrine: no symptoms reported, see HPI Gastrointestinal: abdominal pain, nausea, vomiting. denies: diarrhea, constipation, hematemesis, melena, hematochezia Musculoskeletal: as per HPI Skin: as per HPI Neurological: as per HPI Psychiatric: as per HPI Hematological/Lymphatic: as per HPI ED Past Medical Hx - Past Medical History Previous Medical History?: Yes Hx Hypertension: Yes Hx Diabetes: Yes - Surgical History Past Surgical History?: No Additional Surgical History: left shoulder - Social History Smoking Status: Unknown if ever smoked - Medications Home Medications: Home Medications Medication Instructions Recorded Confirmed Last Taken Type Hydrocodone/Ibuprofen [Vicoprofen 1 each PO Q4H PRN 09/15/15 09/15/15 11/13/15 07:00 History 7.5-200 mg TAB] Butalb/Acetaminophen/Caffeine 1 cap PO Q6HR PRN #10 cap 09/16/15 11/12/15 Rx [Fioricet 50-300-40 mg CAP] Aspirin 325 mg PO QDAY #30 tablet 12/31/18 Unknown Rx Gabapentin 600 mg PO DAILY #30 12/31/18 Unknown Rx Gabapentin 600 mg PO QDAY #30 capsule 12/31/18 Unknown Rx Insulin Glargine [Lantus VIAL] 35 unit SUB-Q QHS 30 Days units 12/31/18 Unkn own Rx Lisinopril/Hydrochlorothiazide 1 tab PO QDAY #30 tab 12/31/18 Unknown Rx [Zestoretic 20-12.5 mg] lisinopriL [Zestril TAB] 5 mg PO QDAY #30 tablet 12/31/18 Unknown Rx oxyCODONE /ACETAMINOPHEN [Percocet 1 tab PO Q4HR #12 tab 12/31/18 Unknown Rx 5/325] Albuterol Mdi (or & Nicu Only) 2 puff IH QID PRN #1 inhalation 04/18/19 Unknown Rx [ProAir HFA Inhaler] Amoxicillin/Potassium Clav 1 each PO BID #14 tablet 04/18/19 Unknown Rx [Augmentin 875-125 Tablet] Benzonatate [Tessalon Perles] 100 mg PO Q8HR #10 capsule 04/18/19 Unknown Rx traMADoL [Ultram] 50 mg PO Q6HR PRN #12 tablet 04/18/19 Unknown Rx Cyclobenzaprine [Flexeril] 10 mg PO QHS PRN #10 tablet 01/13/20 Unknown Rx Naproxen 500 mg PO Q12H PRN #20 tablet 01/13/20 Unknown Rx ED Physical Exam - General Limitations: No Limitations ED Course Vital Signs 07/14/22 07/14/22 07/14/22 20:00 21:10 21:42 Temperature 98.9 F Pulse Rate 107 H 90 92 H Respiratory 18 20 18 Rate Blood Pressure 145/88 Blood Pressure 151/79 [Left] O2 Sat by Pulse 91 97 Oximetry 07/14/22 07/14/22 07/14/22 21:45 22:01 22:15 Temperature Pulse Rate 93 H 94 H 93 H Respiratory 16 29 H 26 H Rate Blood Pressure 168/133 146/96 146/82 Blood Pressure [Left] O2 Sat by Pulse 100 98 98 Oximetry 07/14/22 07/14/22 07/14/22 22:31 22:45 23:01 Temperature Pulse Rate 94 H 89 97 H Respiratory 40 H 29 H 20 Rate Blood Pressure 151/80 148/78 159/83 Blood Pressure [Left] O2 Sat by Pulse 98 98 97 Oximetry 07/14/22 07/14/22 07/14/22 23:04 23:07 23:09 Temperature 98.4 F Pulse Rate 91 H 97 H Respiratory 25 H 20 20 Rate Blood Pressure 144/117 Blood Pressure 159/83 [Left] O2 Sat by Pulse 95 99 97 Oximetry 07/14/22 07/15/22 07/15/22 23:16 00:45 01:00 Temperature Pulse Rate 95 H Respiratory 11 L Rate Blood Pressure 159/83 144/117 143/76 Blood Pressure [Left] O2 Sat by Pulse 94 96 Oximetry 07/15/22 07/15/22 07/15/22 01:16 01:30 01:46 Temperature 98.9 F Pulse Rate 92 H Respiratory 18 Rate Blood Pressure 153/78 155/84 157/84 Blood Pressure 155/84 [Left] O2 Sat by Pulse 82 L 84 83 L Oximetry 07/15/22 07/15/22 07/15/22 02:00 02:16 02:30 Temperature Pulse Rate Respiratory Rate Blood Pressure 162/84 171/95 175/87 Blood Pressure [Left] O2 Sat by Pulse 80 L 83 L 84 Oximetry 07/15/22 07/15/22 07/15/22 02:46 03:00 03:16 Temperature Pulse Rate 118 H 102 H Respiratory 30 H 23 Rate Blood Pressure 171/95 165/89 Blood Pressure [Left] O2 Sat by Pulse 85 78 L 99 Oximetry 07/15/22 03:18 Temperature 98.9 F Pulse Rate Respiratory Rate Blood Pressure Blood Pressure [Left] O2 Sat by Pulse Oximetry - Reevaluation(s) Reevaluation #1: 07/15/22 00:[address] TO BE DONE; IN THE MEANTIME, PATIENT IS GETTING ANTIBIOTICS FOR HIS PNA. LACTIC ACID DOWN. 07/15/22 02:[address] TO BE DONE. SPOKE TO [facility] AND THEY SAID THEY ARE COMING. 07/15/22 03:34 SPOKE TO HOSPITALIST WHO KINDLY ACCEPTED THE PATIENT. ED Medical Decision Making - Lab Data Result diagrams: 07/14/22 21:27 07/14/22 21:27 Critical care attestation.: If time is entered above; I have spent that time in minutes in the direct care of this critically ill patient, excluding procedure time. ED Disposition Clinical Impression: Cholelithiasis, Nephrolithiasis, PNA (pneumonia), Lactic acid increased Disposition: 09 ADMITTED INPATIENT Is pt being admited?: Yes Does the pt Need Aspirin: No Condition: Stable Instructions: Bacterial Pneumonia (ED) Referrals: NEREYDA MCNAMARA MD [Primary Care Provider] - 3-5 Days Time of Disposition: 03:34
[2022-07-14 22:03] LABS: Alanine Aminotransferase 5 units/L (7-56); Albumin 4.3 g/dL (3.9-5); BUN/Creatinine Ratio 13; Blood Urea Nitrogen 14 mg/dL (9-20); Calcium 8.8 mg/dL (8.4-10.2); Hemolysis Index 15
[2022-07-14] MEDS ORDERED: LIDOCAINE-MPF (1%) 10 MG/1 ML VIAL 5 ML INFILTRATI ONE (23:10)
[2022-07-14] MEDS ORDERED: AZITHROMYCIN/NS 500 MG/250 ML 500 MG/250 ML BAG IV ONE (23:10)
[2022-07-14 23:34] LABS: Creatine Kinase MB 2.6 ng/mL (0.0-4.0)
[2022-07-15] MEDS ORDERED: SODIUM CHLORIDE 0.9% 1000 ML 1,000 ML ONE (00:16)
[2022-07-15] MEDS ORDERED: fentaNYL 100 MCG/2 ML INJ ONE (00:39)
[2022-07-15] MEDS ORDERED: fentaNYL 100 MCG/2 ML INJ IV ONE (01:15)
[2022-07-15] MEDS ORDERED: MORPHINE 2 MG/1 ML INJ IV ONE (02:41)
--- NOTE | 2022-07-15 03:14 | Cat Scan Report ---
CT abdomen pelvis w con, CT chest w con INDICATION / CLINICAL INFORMATION: mid and suprapubic pain rdiates to back. TECHNIQUE: Axial CT imaging of chest, abdomen and pelvis was obtained with 100 cc Omni 350 IV contrast. Coronal and sagittal reformatted imaging obtained and reviewed. All CT scans at this location are performed using CT dose reduction for ALARA by means of automated exposure control. COMPARISON: Prior CT abdomen/pelvis 02/04/2019, chest radiograph earlier today FINDINGS: CT chest: Imaging of the thorax with IV contrast does not demonstrate any mediastinal mass. No abnorm ally enlarged lymph nodes present within the mediastinum. Thoracic aorta is unremarkable. No dissecti on or aneurysm. Heart size is normal. No coronary artery calcification noted. Emphysematous changes present throughout both lungs. Right lung is clear. There are some small peribr onchial pulmonary opacities in the left lung base, left lower lobe, suspicious for pneumonia. No pleu ral effusion. CT ABDOMEN: The liver, spleen, pancreas, and adrenal glands all appear grossly unremarkable. A few ga llstones are present within the gallbladder but there is no finding to suggest acute cholecystitis. N o biliary dilatation. Abdominal aorta is normal. There are a few punctate intrarenal calculi bilatera lly without obstruction. The kidneys are otherwise normal. CT PELVIS: No pelvic mass, free fluid, or focal inflammatory process is noted within the pelvis. A no rmal appendix is present in the right lower quadrant. Prostate gland is mildly enlarged. GI tract is within normal limits other than some minimal diverticulosis. Review of osseous structures does not demonstrate any acute significant skeletal abnormality. Severe degenerative change noted in both hips. IMPRESSION: 1. Small pulmonary opacities are present in the left lung base, left lower lobe, highly likely pneumo claudio. No other significant acute finding within the thorax. 2. COPD. 3. Incidental finding of cholelithiasis, bilateral nephrolithiasis, and mild diverticulosis. 4. Moderately enlarged prostate gland. Signer Name: Amy Meier MD Signed: 07/15/2022 3:10 AM Workstation Name: [id number]
[2022-07-15 03:32] LABS: Color,Urine Yellow (Yellow)
[2022-07-15 03:34] LABS: Sperm,Urine FEW /HPF (NP); WBC,Urine < 1.0 /HPF (0.0-6.0)
[2022-07-15] MEDS ORDERED: DEXTROSE 50% IN WATER (25GM) 50 ML SYRINGE IV PRN (04:08)
[2022-07-15] MEDS ORDERED: MAGNESIUM HYDROXIDE (MOM) ORAL LIQD UDC PO PRN (04:08)
[2022-07-15] MEDS ORDERED: ACETAMINOPHEN 325 MG TAB PO PRN (04:08)
[2022-07-15] MEDS ORDERED: ONDANSETRON 4 MG/2 ML INJ IV PRN (04:08)
[2022-07-15] MEDS ORDERED: SODIUM CHLORIDE 0.9% 1000 ML 1,000 ML IV SCH (04:15)
--- NOTE | 2022-07-15 04:23 | History and Physical Report ---
History of Present Illness Date of examination: 07/15/22 Date of admission: 07/15/2022 Chief complaint: Shortness of Breath Abdominal pain History of present illness: 65-year-old male with known history of hypertension, diabetes mellitus, presenting in the emergency room today complaining of shortness of breath with some chest discomfort. He also indicates that he has been having some mild epigastric discomfort. He has had some nausea but no vomiting and no diarrhea. Denies any hematuria or dysuria. Patient denies any fever or chills, no headache or dizziness and no diaphoresis. Work-up in the emergency room today, lab reveals mild leukocytosis of 11.6, hemoglobin of 19.8 hematocrit of 59.8. Lactic acid of 1.8. Urinalysis unremarkable. Chest x-ray shows patchy right upper lobe consolidation most concerning for pneumonia. CT of the abdomen and pelvis shows small pulmonary opacities in the left lung base, and left lower lobe, highly suspicious for pneumonia. Incidental findings of cholelithiasis, bilateral nephrolithiasis and mild diverticulosis. Moderately enlarged prostate gland. Patient being admitted with pneumonia and cholelithiasis. Past History Past Medical History: diabetes, hypertension Past Surgical History: Other (Left shoulder ) Social history: no significant social history Family history: no significant family history Medications and Allergies Allergies Allergy/AdvReac Type Severity Reaction Status Date / Time No Known Allergies Allergy Unverified 09/15/15 23:47 Home Medications Medication Instructions Recorded Confirmed Last Taken Type Hydrocodone/Ibuprofen [Vicoprofen 1 each PO Q4H PRN 09/15/15 09/15/15 11/13/15 07:00 History 7.5-200 mg TAB] Butalb/Acetaminophen/Caffeine 1 cap PO Q6HR PRN #10 cap 09/16/15 11/12/15 Rx [Fioricet 50-300-40 mg CAP] Aspirin 325 mg PO QDAY #30 tablet 12/31/18 Unknown Rx Gabapentin 600 mg PO DAILY #30 12/31/18 Unknown Rx Gabapentin 600 mg PO QDAY #30 capsule 12/31/18 Unknown Rx Insulin Glargine [Lantus VIAL] 35 unit SUB-Q QHS 30 Days units 12/31/18 Unkn own Rx Lisinopril/Hydrochlorothiazide 1 tab PO QDAY #30 tab 12/31/18 Unknown Rx [Zestoretic 20-12.5 mg] lisinopriL [Zestril TAB] 5 mg PO QDAY #30 tablet 12/31/18 Unknown Rx oxyCODONE /ACETAMINOPHEN [Percocet 1 tab PO Q4HR #12 tab 12/31/18 Unknown Rx 5/325] Albuterol Mdi (or & Nicu Only) 2 puff IH QID PRN #1 inhalation 04/18/19 Unknown Rx [ProAir HFA Inhaler] Amoxicillin/Potassium Clav 1 each PO BID #14 tablet 04/18/19 Unknown Rx [Augmentin 875-125 Tablet] Benzonatate [Tessalon Perles] 100 mg PO Q8HR #10 capsule 04/18/19 Unknown Rx traMADoL [Ultram] 50 mg PO Q6HR PRN #12 tablet 04/18/19 Unknown Rx Cyclobenzaprine [Flexeril] 10 mg PO QHS PRN #10 tablet 01/13/20 Unknown Rx Naproxen 500 mg PO Q12H PRN #20 tablet 01/13/20 Unknown Rx Active Meds: Active Medications Acetaminophen (Acetaminophen 325 Mg Tab) 650 mg PO Q4H PRN PRN Reason: Pain MILD(1-3)/Fever >100.5/AGUILAR Azithromycin (Azithromycin 250 Mg Tab) 500 mg PO QDAY KENYATTA; Protocol Dextrose (Dextrose 50% In Water (25gm) 50 Ml Syringe) 50 ml IV Q30MIN PRN; Protocol PRN Reason: Hypoglycemia Sodium Chloride (Nacl 0.9% 1000 Ml) 1,000 mls @ 125 mls/hr IV DIRECT KENYATTA Ceftriaxone Sodium (Rocephin/Ns 2 Gm/100 Ml) 2 gm in 100 mls @ 200 mls/hr IV Q24H KENYATTA; Protocol Insulin Human Regular (Insulin Regular, Human 100 Units/1 Ml) 0 units SUB-Q ACHS KENYATTA; Protocol Magnesium Hydroxide (Magnesium Hydroxide (Mom) Oral Liqd Udc) 30 ml PO Q4H PRN PRN Reason: Constipation Morphine Sulfate (Morphine 2 Mg/1 Ml Inj) 2 mg IV Q4H PRN PRN Reason: Pain, Moderate (4-6) Morphine Sulfate (Morphine 4 Mg/1 Ml Inj) 4 mg IV Q4H PRN PRN Reason: Pain , Severe (7-10) Ondansetron HCl (Ondansetron 4 Mg/2 Ml Inj) 4 mg IV Q8H PRN PRN Reason: Nausea And Vomiting Sodium Chloride (Sodium Chloride 0.9% 10 Ml Flush Syringe) 10 ml IV BID KENYATTA Sodium Chloride (Sodium Chloride 0.9% 10 Ml Flush Syringe) 10 ml IV PRN PRN PRN Reason: LINE FLUSH Review of Systems Constitutional: no fever, no chills Ears, nose, mouth and throat: no nasal congestion, no sore throat Cardiovascular: no chest pain, no palpitations Respiratory: shortness of breath, no cough Gastrointestinal: abdominal pain, no nausea, no vomiting, no diarrhea Genitourinary Male: no dysuria, no hematuria, no flank pain, no nocturia Musculoskeletal: no neck pain, no low back pain Integumentary: no rash, no pruritis Neurological: no headaches, no confusion Psychiatric: no anxiety, no depression Endocrine: no polyphagia, no polydipsia, no polyuria, no nocturia Exam - Constitutional Vitals: Temp Pulse Resp BP Pulse Ox 98.9 F 102 H 23 165/89 99 07/15/22 03:18 07/15/22 03:16 07/15/22 03:16 07/15/22 03:16 07/15/22 03:16 General appearance: Present: no acute distress, well-nourished - EENT Eyes: Present: PERRL, EOM intact. Absent: scleral icterus ENT: hearing intact, clear oral mucosa, dentition normal - Neck Neck: Present: supple, normal ROM - Respiratory Respiratory effort: normal Respiratory: bilateral: diminished - Cardiovascular Rhythm: regular Heart Sounds: Present: S1 & S2. Absent: gallop, systolic murmur, diastolic murmur, rub, click - Extremities Extremities: no ischemia, pulses intact, pulses symmetrical, No edema, normal temperature, normal color, Full ROM Peripheral Pulses: within normal limits - Abdominal General gastrointestinal: Present: soft, non-tender, non-distended, normal bowel sounds. Absent: mass - Integumentary Integumentary: Present: clear, warm, dry, normal turgor. Absent: rash - Musculoskeletal Musculoskeletal: strength equal bilaterally - Psychiatric Psychiatric: appropriate mood/affect, intact judgment & insight, memory intact, cooperative - Neurologic Neurologic: CNII-XII intact, no focal deficits, moves all extremities HEART Score - HEART Score Troponin: Troponin T < 0.010 ng/mL (0.00-0.029) 07/14/22 22:33 Results - Labs CBC & Chem 7: 07/14/22 21:27 07/14/22 21:27 Labs: Abnormal lab results 07/14/22 07/14/22 07/14/22 Range/Units 21:27 21:27 21:27 WBC 11.6 H (4.5-11.0) K/mm3 RBC 7.92 H (3.65-5.03) M/mm3 Hgb 19.8 H (11.8-15.2) gm/dl Hct 59.8 H (35.5-45.6) % MCV 75 L (84-94) fl MCH 25 L (28-32) pg RDW 15.6 H (13.2-15.2) % [place] % (Auto) 8.2 H (0.0-7.3) % [place] # (Auto) 0.9 H (0.0-0.8) K/mm3 Seg Neutrophils % 77.4 H (40.0-70.0) % Seg Neutrophils # 8.8 H (1.8-7.7) K/mm3 Chloride 97.1 L (98-107) mmol/L Carbon Dioxide 33 H (22-30) mmol/L Glucose 243 H (75-100) mg/dL Lactic Acid 2.40 H* (0.7-2.0) mmol/L Total Bilirubin 2.00 H (0.1-1.2) mg/dL ALT 5 L (7-56) units/L 07/15/22 Range/Units 02:55 WBC (4.5-11.0) K/mm3 RBC (3.65-5.03) M/mm3 Hgb (11.8-15.2) gm/dl Hct (35.5-45.6) % MCV (84-94) fl MCH (28-32) pg RDW (13.2-15.2) % [place] % (Auto) (0.0-7.3) % [place] # (Auto) (0.0-0.8) K/mm3 Seg Neutrophils % (40.0-70.0) % Seg Neutrophils # (1.8-7.7) K/mm3 Chloride (98-107) mmol/L Carbon Dioxide (22-30) mmol/L Glucose (75-100) mg/dL Lactic Acid 2.40 H* (0.7-2.0) mmol/L Total Bilirubin (0.1-1.2) mg/dL ALT (7-56) units/L Assessment and Plan Assessment: 1.Pneumonia 2.Cholelithiasis 3.Diabetes mellitus 4.Hypertension Plan: 1. Patient admitted and placed on IV fluid and empiric IV antibiotics. 2. Will await culture results. 3. Patient placed on sliding scale insulin. We will monitor Accu-Cheks. 4. We will resume routine home medications. DVT Prophylaxis: SQ Heparin Code Status: Full Code.
[2022-07-15] MEDS: MORPHINE 4 MG/1 ML INJ IV PRN ×2 (07:00→22:45)
[2022-07-15] MEDS: INSULIN REGULAR, HUMAN 100 UNITS/1 ML SUB-Q SCH ×4 (10:24→23:53)
[2022-07-15] MEDS: cefTRIAXone/NS 2 GM/100 ML 2 GM/100 ML BAG IV SCH (10:30)
[2022-07-15] MEDS: NICOTINE 21 MG/24 HR PATCH TD SCH (10:31)
[2022-07-15] MEDS: AZITHROMYCIN 250 MG TAB PO SCH (10:31)
[2022-07-15] MEDS: MORPHINE 2 MG/1 ML INJ IV PRN ×2 (10:33→17:38)
--- NOTE | 2022-07-15 15:36 | Event Note ---
Date: 07/15/22 Patient seen and examined at the bedside. He reports coming to the ED because he was having shortness of breath, cough and severe abdominal pain. Labs and imaging were reviewed. Abdominal ultrasound of the right upper quadrant was ordered due to patient complaint of localized pain in that area and elevated total bilirubin. He takes lantus at bedtime for his diabetes which I restarted at 20 units. We will continue with treatment for probable community-acquired pneumonia.
[2022-07-15] MEDS: LISINOPRIL 40 MG TAB PO SCH (16:30)
[2022-07-15] MEDS: GABAPENTIN 300 MG CAP PO SCH (16:30)
[2022-07-15] MEDS ORDERED: INSULIN GLARGINE 100 UNITS/ML SUB-Q SCH (22:00)
[2022-07-15] MEDS ORDERED: CYCLOBENZAPRINE 10 MG TAB PO PRN (22:00)
[2022-07-15] MEDS: BENZONATATE 100 MG CAP PO SCH (22:48)
[2022-07-16] MEDS: BENZONATATE 100 MG CAP PO SCH (06:00)
[2022-07-16] MEDS: INSULIN REGULAR, HUMAN 100 UNITS/1 ML SUB-Q SCH ×2 (09:00→12:21)
--- NOTE | 2022-07-16 09:01 | Ultrasound Report ---
LIMITED RUQ ABDOMINAL ULTRASOUND INDICATION: RUQ to visualize liver and gallbladder, severe abdominal pain. COMPARISON: No relevant prior imaging study available. FINDINGS: Pancreas: Visualized portions show no significant abnormality. Abdominal Aorta: No significant abnormality. IVC: No significant abnormality. Liver: The liver measures 19.5 cm in length. No significant abnormality. Normal hepatopedal blood venkata w in the main portal vein. Gallbladder: There are multiple small stones in the gallbladder.. Bile ducts: No significant abnormality. Common bile duct measures 2.5 mm. Right kidney: No significant abnormality visualized.. Free fluid: None. Additional Findings: None. IMPRESSION: 1. No acute findings. 2. Cholelithiasis without evidence for acute cholecystitis.. Signer Name: Adriano Daigle MD Signed: 07/16/2022 8:56 AM Workstation Name: [employer]
[2022-07-16] MEDS: GABAPENTIN 300 MG CAP PO SCH (09:52)
[2022-07-16] MEDS: LISINOPRIL 40 MG TAB PO SCH (09:52)
[2022-07-16] MEDS: cefTRIAXone/NS 2 GM/100 ML 2 GM/100 ML BAG IV SCH (09:52)
[2022-07-16] MEDS: AZITHROMYCIN 250 MG TAB PO SCH (09:52)
[2022-07-16] MEDS: NICOTINE 21 MG/24 HR PATCH TD SCH (09:53)
[2022-07-16] MEDS ORDERED: predniSONE 20 MG TAB PO SCH (10:00)
[2022-07-16] MEDS ORDERED: ASPIRIN 325 MG TAB PO SCH (10:00)
[2022-07-16] MEDS: MORPHINE 2 MG/1 ML INJ IV PRN (10:02)
[2022-07-16 11:02] LABS: Hemoglobin 17.4 gm/dl (11.8-15.2); Mean Corpuscular HGB Conc 32 % (32-34); Mean Corpuscular Volume 76 fl (84-94); Platelet Count 220 K/mm3 (140-440); Red Blood Count 7.14 M/mm3 (3.65-5.03); Red Cell Distribution Width 15.2 % (13.2-15.2)
[2022-07-16 11:13] LABS: Basophils % (Auto) 0.7 % (0.0-1.8); Eosinophils # (Auto) 0.2 K/mm3 (0.0-0.4); Eosinophils % (Auto) 2.8 % (0.0-4.3); Hematocrit 51.9 % (35.5-45.6); Hemoglobin 17.5 gm/dl (11.8-15.2); Lymphocytes # (Auto) 1.1 K/mm3 (1.2-5.4); Lymphocytes % (Auto) 17.1 % (13.4-35.0); Mean Corpuscular HGB Conc 34 % (32-34); Mean Corpuscular Volume 75 fl (84-94); Monocytes # (Auto) 0.5 K/mm3 (0.0-0.8); Monocytes % (Auto) 8.3 % (0.0-7.3); Platelet Count 218 K/mm3 (140-440); Red Blood Count 6.93 M/mm3 (3.65-5.03); Red Cell Distribution Width 15.6 % (13.2-15.2)
[2022-07-16 11:26] LABS: Bilirubin,Direct 0.2 mg/dL (0-0.2); Blood Urea Nitrogen 11 mg/dL (9-20); Calcium 8.3 mg/dL (8.4-10.2); Hemolysis Index 71
[2022-07-16 11:35] LABS: BUN/Creatinine Ratio 16
--- NOTE | 2022-07-16 11:44 | Discharge Summary ---
Providers - Providers Date of Admission: 07/15/22 04:08 Date of discharge: 07/16/22 Attending physician: NORMA GONZALEZ MD 07/15/22 04:08 Consult to Dietitian/Nutrition [CONS] Routine Physician Instructions: Reason For Exam: Reason for Consult: Diet education Primary care physician: NEREYDA MCNAMARA MD Hospitalization Reason for admission: Acute on chronic COPD exacerbation Condition: Stable Pertinent studies: Reviewed. Procedures: None. Hospital course: Patient is a 67-year-old male past medical history of insulin-dependent type 2 diabetes mellitus, hypertension, undiagnosed COPD, and tobacco dependence who presented to the ED with complaints of worsening shortness of breath and chest pressure. Patient also endorsed abdominal discomfort that was more in his epigastric region with radiation to his back and suprapubic area. Patient denies any alleviating or precipitating factors in regards to his chest pressure. He also denies any radiation of chest pain/pressure anywhere else. Patient denied fevers, chills, night sweats, blurred vision, dizziness, lightheadedness, headache, tinnitus, ear pain, runny nose, sore throat, loss of taste or smell, cough, diarrhea, constipation, dysuria, increased frequency, hematuria, arthralgias, new rash, or heat or cold intolerance. Patient endorses smoking approximately 1.5 packs of cigarettes daily. Patient denies being officially diagnosed with COPD. On presentation to the ED, the patient was found to be hemodynamically stable yet tachycardic to 107. Patient underwent CT angio chest that was found to be unremarkable for pulmonary embolism but revealing consolidation concerning for infection in the left lower lobe. There were also incidental findings of cholelithiasis, bilateral nephrolithiasis, and mild diverticulosis. Patient was also found to have a moderately enlarged prostate. Patient was initiated on antibiotics for community-acquired pneumonia (azithromycin and Rocephin). The patient was also found to be unremarkable for coronavirus infection. Patient also underwent abdominal ultrasound due to his pain that is out of proportion, no was found to be unremarkable. With further reevaluation, the patient describes having abdominal discomfort for appro ximately 3 weeks that is rated a 4 out of 10. The abdominal discomfort could be secondary to benign prostatic hyperplasia, and the patient has since been started on Flomax 0.4 mg daily. Patient will be discharged with azithromycin and Ceftin to be completed in the outpatient setting. Patient has been counseled about tobacco dependence, and he expressed understanding. Patient is medically clear for discharge. Disposition: 01 HOME / SELF CARE / HOMELESS Final Discharge Diagnosis (Prints w/discharge instructions): Acute on chronic COPD exacerbation, hypertension, insulin-dependent type 2 diabetes mellitus, tobacco dependence. Time spent for discharge: 45 min Core Measure Documentation - Palliative Care Palliative Care/ Comfort Measures: Not Applicable - Core Measures Any of the following diagnoses?: none Exam - Constitutional Vitals: Temp Pulse Resp BP Pulse Ox 97.6 F 72 18 152/83 99 07/16/22 05:00 07/16/22 05:00 07/16/22 05:00 07/16/22 05:00 07/16/22 05:00 General appearance: Present: no acute distress, well-nourished - EENT Eyes: Present: PERRL, EOM intact ENT: hearing intact, clear oral mucosa, dentition normal - Neck Neck: Present: supple, normal ROM - Respiratory Respiratory effort: normal Respiratory: bilateral: diminished - Cardiovascular Rhythm: regular Heart Sounds: Present: S1 & S2 - Extremities Extremities: no ischemia, pulses intact, pulses symmetrical, No edema, normal temperature, normal color, Full ROM Peripheral Pulses: within normal limits - Abdominal General gastrointestinal: Present: soft, tender, non-distended, normal bowel sounds Localized gastrointestinal: tender: epigastric periumbilical, suprapubic Male genitourinary: Present: deferred - Rectal Rectal Exam: deferred - Integumentary Integumentary: Present: clear, warm, dry - Musculoskeletal Musculoskeletal: strength equal bilaterally - Psychiatric Psychiatric: appropriate mood/affect, intact judgment & insight, memory intact - Neurologic Neurologic: CNII-XII intact, moves all extremities - Allied Health Allied health notes reviewed: nursing Plan Activity: advance as tolerated Diet: low salt, diabetic Additional Instructions: Patient is a 67-year-old male past medical history of insulin-dependent type 2 diabetes mellitus, hypertension, undiagnosed COPD, and tobacco dependence who presented to the ED with complaints of worsening shortness of breath and chest pressure. Patient also endorsed abdominal discomfort that was more in his epigastric region with radiation to his back and suprapubic area. Patient denies any alleviating or precipitating factors in regards to his chest pressure. He also denies any radiation of chest pain/pressure anywhere else. Patient denied fevers, chills, night sweats, blurred vision, dizziness, lightheadedness, headache, tinnitus, ear pain, runny nose, sore throat, loss of taste or smell, cough, diarrhea, constipation, dysuria, increased frequency, hematuria, arthralgias, new rash, or heat or cold intolerance. Patient endorses smoking approximately 1.5 packs of cigarettes daily. Patient denies being officially diagnosed with COPD. On presentation to the ED, the patient was found to be hemodynamically stable yet tachycardic to 107. Patient underwent CT angio chest that was found to be unremarkable for pulmonary embolism but revealing consolidation concerning for infection in the left lower lobe. There were also incidental findings of cholelithiasis, bilateral nephrolithiasis, and mild diverticulosis. Patient was also found to have a moderately enlarged prostate. Patient was initiated on antibiotics for community-acquired pneumonia (azithromycin and Rocephin). The patient was also found to be unremarkable for coronavirus infection. Patient also underwent abdominal ultrasound due to his pain that is out of proportion, no was found to be unremarkable. With further reevaluation, the patient describes having abdominal discomfort for approximately 3 weeks that is rated a 4 out of 10. The abdominal discomfort could be secondary to benign prostatic hyperplasia, and the patient has since been started on Flomax 0.4 mg daily. Patient will be discharged with azithromycin and Ceftin to be completed in the outpatient setting. Patient has been counseled about tobacco dependence, and he expressed understanding. Patient is medically clear for discharge. Care Plan Goals: Patient is medically clear for discharge. Assessment: Patient is a 67-year-old male past medical history of insulin-dependent type 2 diabetes mellitus, hypertension, undiagnosed COPD, and tobacco dependence who presented to the ED with complaints of worsening shortness of breath and chest pressure. Patient also endorsed abdominal discomfort that was more in his epigastric region with radiation to his back and suprapubic area. Patient denies any alleviating or precipitating factors in regards to his chest pressure. He also denies any radiation of chest pain/pressure anywhere else. Patient denied fevers, chills, night sweats, blurred vision, dizziness, lightheadedness, headache, tinnitus, ear pain, runny nose, sore throat, loss of taste or smell, cough, diarrhea, constipation, dysuria, increased frequency, hematuria, arthralgias, new rash, or heat or cold intolerance. Patient endorses smoking approximately 1.5 packs of cigarettes daily. Patient denies being officially diagnosed with COPD. On presentation to the ED, the patient was found to be hemodynamically stable yet tachycardic to 107. Patient underwent CT angio chest that was found to be unremarkable for pulmonary embolism but revealing consolidation concerning for infection in the left lower lobe. There were also incidental findings of cholelithiasis, bilateral nephrolithiasis, and mild diverticulosis. Patient was also found to have a moderately enlarged prostate. Patient was initiated on antibiotics for community-acquired pneumonia (azithromycin and Rocephin). The patient was also found to be unremarkable for coronavirus infection. Patient also underwent abdominal ultrasound due to his pain that is out of proportion, no was found to be unremarkable. With further reevaluation, the patient describes having abdominal discomfort for approximately 3 weeks that is rated a 4 out of 10. The abdominal discomfort could be secondary to benign prostatic hyperplasia, and the patient has since been started on Flomax 0.4 mg daily. Patient will be discharged with azithromycin and Ceftin to be completed in the outpatient setting. Patient has been counseled about tobacco dependence, and he expressed understanding. Patient is medically clear for discharge. Follow up with: NEREYDA MCNAMARA MD [Primary Care Provider] - 3-5 Days ANAMARIA PEREA MD [Staff Physician] - 6 Weeks (COPD work-up.) Prescriptions: predniSONE [Deltasone] 40 mg PO QDAY #4 tablet Tamsulosin [Flomax] 0.4 mg PO QDAY #30 capsule Nicotine [Habitrol] 21 mg TD QDAY #30 patch lisinopriL [Zestril TAB] 40 mg PO QDAY #30 tablet
[2022-07-16] MEDS ORDERED: TAMSULOSIN 0.4 MG CAP PO SCH (12:00)
[2022-07-16 13:09] VITALS: BP 160/85
--- NOTE | 2022-07-17 14:15 | Electrocardiograph Report ---
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
== END 2022-07-16 14:17 | disposition home or self-care (01) | DRG 190 ==
LOC: ED 19:54 → 3A 07-15 04:08
PROVIDERS: ADMIT Internal Medicine Geriatric Medicine; ATTEND Student in an Organized Health Care Education/Training Program
DX: J44.1 Chronic obstructive pulmonary disease with (acute) exacerbation (principal); J18.9 Pneumonia, unspecified organism; J44.0 Chronic obstructive pulmonary disease with (acute) lower respiratory infection; K80.20 Calculus of gallbladder without cholecystitis without obstruction; Z20.822 Contact with and (suspected) exposure to COVID-19; E11.9 Type 2 diabetes mellitus without complications; I10 Essential (primary) hypertension; N20.0 Calculus of kidney; F17.200 Nicotine dependence, unspecified, uncomplicated; Z79.4 Long term (current) use of insulin; Z79.899 Other long term (current) drug therapy; Z79.82 Long term (current) use of aspirin
CPT/HCPCS: 36415; 71046; 71260; 74177; 76705; 80048; 80053; 81001; 82140; 82247; 82248; 82550; 82553; 82805; 82962; 83690; 84484; 85025; 85027; 85610; 87040; 93005; 94760; 96372; 96374; 99285; G0378; J3490; Q9967; J0456; J0696; J1815; J2270; J3010; J7030; U0003